=== PATIENT | female | born 1980 | race Hispanic/Latino ===

== ENCOUNTER 2020-05-29 18:29 | Outpatient (CLI) | payer OTHER ==
--- NOTE | 2020-05-29 18:57 | RAD ---
LEFT FOOT: 05/29/20 Three views. HISTORY: Left foot pain. Small spur from the plantar calcaneus. Tarsals otherwise unremarkable. The metatarsals and phalanges appear intact. There is a lucency involving the tuft of the distal phalanx of the great toe. This is nonspecific; ho wever, an erosive process at this site cannot be excluded. No significant evidence of soft tissue swe lling at this site. Recommend clinical correlation. If there is inflammation involving the greater to e, this would be concerning for osteomyelitis. No other lytic or erosive change. IMPRESSION: 1. Abnormal area of lucency involving the tuft of the distal phalanx of the great toe. Recommend clinical correlation. 2. Small enthesophyte from the posterior calcaneus. POS: [facility]
== END 2020-05-29 18:30 | disposition home or self-care (01) ==
LOC: NAV RAD 18:29
PROVIDERS: ATTEND Nurse Practitioner Family
DX: M79.672 Pain in left foot (principal); M25.872 Other specified joint disorders, left ankle and foot

== ENCOUNTER 2021-05-02 14:52 | Emergency (ER) | payer SELFPAY ==
[2021-05-02 15:29] LABS: Bilirubin Negative (Negative); Blood, Urine Trace (Negative); Clarity Clear (Clear); Glucose, Urine (Dipstick) Negative (Negative); Ketone, Urine Negative (Negative); Leukocyte Negative (Negative); Nitrite Negative (Negative); Protein, Urine (Dipstick) Negative (Neg-Trace); Specific Gravity, Urine 1.025 (1.005-1.030)
[2021-05-02 15:38] LABS: Pregnancy Test - Urine (BHCG) Negative (Negative); Pregu Control Background? CLEAR/WHITE (CLR/WHITE); Pregu Control Bar Appear? YES (CONTROL BAR); Specific Gravity 1.025 (1.002-1.036)
[2021-05-02 15:39] LABS: Bacteria/HPF None Seen HPF (None Seen); RBC/HPF 0-3 HPF (0-3); Squamous Epithelial 0-3 HPF (0-3); WBC/HPF None Seen HPF (0-3)
[2021-05-02 16:39] LABS: Hemoglobin 11.4 g/dL (12.0-16.0); Mean Corpuscular Hemoglobin 28.6 pg (27.0-31.0); Mean Corpuscular Volume 86.7 fL (78.0-98.0); RBC Distribution Width 11.9 % (11.5-14.5); Red Blood Cell (RBC) Count 3.98 mill/uL (4.20-5.40); White Blood Cell (WBC) Count 10.2 thou/uL (4.8-10.8)
[2021-05-02 16:45] LABS: ALT (SGPT) 17 U/L (8-55); AST (SGOT) 22 U/L (5-34); Albumin 3.7 g/dL (3.5-5.0); Alkaline Phosphatase 44 U/L (40-110); Anion Gap 15 mmol/L (10-20); BUN (Urea Nitrogen) 9 mg/dL (7.0-18.7); Bilirubin, Total 0.3 mg/dL (0.2-1.2); Calc. Creatinine Clearance 0 mL/min (70-130); Calcium 9.1 mg/dL (7.8-10.44); Carbon Dioxide 19 mmol/L (22-29); Chloride 105 mmol/L (98-107); Globulin 3.4 g/dL (2.4-3.5); Glucose 98 mg/dL (70-105); Potassium 4.1 mmol/L (3.5-5.1); Protein, Total 7.1 g/dL (6.0-8.3); Sodium 135 mmol/L (136-145)
[2021-05-02 16:46] LABS: Wet Prep Clue Cells Clue Cells Absent (None Seen); Wet Prep Trichomonas Trichomonas Absent (None Seen)
[2021-05-02 16:56] LABS: Platelet Count 116 thou/uL (130-400)
[2021-05-02 16:57] LABS: #Basophils 0.1 thou/uL (0.0-0.2); #Eosinphils 0.1 thou/uL (0.0-0.7); #Monocytes 0.9 thou/uL (0.11-0.59); #Neutrophils 8.5 thou/uL (1.40-6.50); %Lymphocytes 17.1 % (21.0-51.0); %Monocytes 6.4 % (0.0-10.0); %Neutrophils 73.7 % (42.0-75.0); Platelet Morphology Comment Appears Decreased; RBC Morphology Normal
[2021-05-02] MEDS ORDERED: Morphine 4 MG/ML VIAL ONE (17:00)
[2021-05-02] MEDS ORDERED: Ondansetron PF 4 MG/2 ML Vial ONE (17:00)
[2021-05-04 12:09] LABS: Chlamydia by PCR Not Detected (NotDetected); GC by PCR Not Detected (NotDetected)
== END 2021-05-02 17:29 | disposition home or self-care (01) ==
LOC: NAV ERS 14:52
DX: R10.2 Pelvic and perineal pain (principal)
CPT/HCPCS: 36415; 80053; 81003; 81015; 81025; 85025; 87086; 87210; 87480; 87491; 87510; 87591; 87660; 96374; 96375; J2270; J2405